=== PATIENT | female | born 1990 | race Two or more races ===

== ENCOUNTER 2016-06-11 21:50 | Emergency (ER) | payer MEDICAID ==
[~2016-06-11] VITALS: Ht 167.6 cm; Wt 53.1 kg
[2016-06-11 22:00] VITALS: BP 142/88
[2016-06-12] MEDS ORDERED: BACITRACIN-POLYMYXIN B TOPICAL OINT UD TOP ONE (00:48)
[2016-06-12] MEDS ORDERED: BACITRACIN TOP OINT 1 UD PKG TOP ONE (01:00)
[2016-06-12] MEDS ORDERED: TETANUS-DIPTH-ACEL PERTUSSIS 0.5ML SYRG IM ONE (01:00)
== END 2016-06-12 01:05 | disposition home or self-care (01) ==
LOC: ER 21:54
DX: S01.81XA Laceration without foreign body of other part of head, initial encounter (principal); W22.8XXA Striking against or struck by other objects, initial encounter; Y93.89 Activity, other specified; Y99.8 Other external cause status; Y92.89 Other specified places as the place of occurrence of the external cause
CPT/HCPCS: 12011; 90471; 90715